=== PATIENT | male | born 1975 | race Two or more races ===

== ENCOUNTER 2025-02-16 06:34 | Emergency (ER) | payer OTHER, SELFPAY ==
[2025-02-16 06:36] VITALS: BP 144/92; PULSE 95; RESP 20; TEMP 37.3; O2SAT 95
[2025-02-16 06:37] VITALS: BMI 30.7
--- NOTE | 2025-02-16 06:58 | XR_ITS ---
Examination: CT cervical spine without contrast 2-D sagittal reconstructions 2-D coronal reconstructions 3-D reconstructions. Exam date and time:February 16, 2025, 0717 hours INDICATIONS: Patient fell off a ladder today with injury to the neck, neck pain CTDI:vol (mGy) 11.1 DLP: (mGycm) 263 Technique: Multiple 2 mm axial sections of the cervical spine have been obtained. The coronal and sagittal reconstructions have been obtained. 3-D reconstructions have been obtained. Low dose protocols were performed. One or more of the following dose reduction techniques were used; automated exposure control, adjustment of the mA and/or KV according to patient size, use of iterative reconstruction technique. Findings: Axial sections demonstrate intact base of the skull. C1 exhibit satisfactory relationship to the odontoid. No acute cervical vertebral body fracture seen. Alignment posterior spinous processes satisfactory. Impression: No acute cervical fracture.
--- NOTE | 2025-02-16 06:58 | XR_ITS ---
Examination: CT brain head without contrast. 2-D sagittal coronal reconstructions Date and time of exam:February 16, 2025, 0717 hours INDICATIONS: Patient fell off a ladder today with injury to the head, head pain CTDI: vol (mGy):55.9 DLP: (mGycm):1074 Technique: Multiple CT axial sections of the brain have been obtained, 5 mm slice thickness. Contrast has not been administered. 2-D sagittal, coronal reconstructions have been obtained Low dose protocols were performed. One or more of the following dose reduction techniques were used; automated exposure control, adjustment of the mA and/or KV according to patient size, use of iterative reconstruction technique. Findings: No significant ventricular enlargement. Intra-axial or extra-axial hemorrhage density is not seen. No mass effect or midline shift Basal cisterns are not remarkable. Fourth ventricle is midline. Cranial vault intact. Impression: Negative for acute hemorrhage, mass effect or midline shift
--- NOTE | 2025-02-16 06:58 | XR_ITS ---
EXAMINATION: Ankle, right 3 views . Technique: Ankle AP, oblique, lateral 3 views Date and time of exam: February 16, 2025 0709 hours INDICATIONS: Patient fell today with into the ankle, ankle pain. FINDINGS: Prominent osteopenia. Comminuted fractures anterior calcaneus No ankle dislocation IMPRESSION: Recommend CT scan ankle without contrast follow-up to assess comminuted calcaneal fractures
--- NOTE | 2025-02-16 07:02 | PD.EDHEAD ---
ED Head Injury RME/HPI General Chief complaint: Ankle/Foot Injury Stated complaint: I THINK I BROKE MY RIGHT ANKLE, FALL FROM LATTER Time Seen by Provider: 02/16/25 06:40 Source: patient Arrival date/time: 02/16/25 06:34 49-year-old male with no known medical history presents to the emergency room with a chief complaint of tenderness and swelling to his right ankle. Patient states he was working on his roof and fell from a ladder that is approximately 5 foot. Patient also states he has been drinking alcohol. Mode of arrival: ambulatory Limitations: no limitations Related Data Previous Rx's ?Medication ?Instructions ?Recorded ibuprofen 800 mg tablet 800 mg PO TID PRN pain #30 tabs 10/31/22 Allergies Allergy/AdvReac Type Severity Reaction Status Date / Time No Known Allergies Allergy Verified 02/16/25 06:37 Review of Systems Review of Systems Systems Reviewed: All systems reviewed, normal except as documented Constitutional Constitutional: Reports system reviewed and no additional complaints, except as documented, Denies fatigue, Denies fever(s), Denies headache(s) and Denies weakness Eyes Eyes: Reports system reviewed and no additional complaints, except as documented, Denies blurry vision and Denies change in vision ENT Ears, Nose, Mouth, and Throat: Reports system reviewed and no additional complaints, except as documented, Denies otalgia, Denies headache(s), Denies nasal congestion, Denies throat swelling and Denies vertigo Cardiovascular Cardiovascular: Reports system reviewed and no additional complaints, except as documented, Denies chest pain, Denies dyspnea and Denies dyspnea on exertion Respiratory Respiratory: Reports system reviewed and no additional complaints, except as documented, Denies chest congestion, Denies cough, Denies dyspnea, Denies dyspnea on exertion and Denies wheezing Gastrointestinal Gastrointestinal: Reports system reviewed and no additional complaints, except as documented, Denies abdominal pain, Denies cramping, Denies nausea and Denies vomiting Genitourinary Genitourinary: Reports system reviewed and no additional complaints, except as documented, Denies dysuria and Denies hematuria Musculoskeletal Musculoskeletal: Reports system reviewed and no additional complaints, except as documented, Reports abnormal gait, Reports arthralgias, Denies back pain, Reports joint swelling and Reports limited range of motion Integumentary/Breasts Skin/Breast: Reports system reviewed and no additional complaints, except as documented and Denies wounds Neurologic Neurologic: Reports system reviewed and no additional complaints, except as documented, Reports abnormal gait, Denies confusion, Denies headache(s), Denies lack of coordination, Denies vertigo and Denies weakness Psychiatric Psychiatric: Reports system reviewed and no additional complaints, except as documented, Denies anxiety, Denies confusion, Denies depression, Denies paranoia, Denies suicidal ideation and Denies tactile hallucinations Endocrine Endocrine: Reports system reviewed and no additional complaints, except as documented and Denies fatigue Hematologic/Lymphatic Hematologic/Lymphatic: Reports system reviewed and no additional complaints, except as documented and Denies lymphadenopathy Allergic/Immunologic Allergic/Immunologic: Reports system reviewed and no additional complaints, except as documented, Denies throat swelling, Denies urticaria and Denies wheezing ED Exam General Limitations: Present no limitations General appearance: Present alert and in no apparent distress Head Head exam: Present atraumatic Eye Eye exam: Present normal appearance, PERRL and EOMI ENT ENT exam: Present normal exam, normal oropharynx and mucous membranes moist Neck Neck exam: Present normal inspection, full ROM and trachea midline Chest Chest inspection: Present normal inspection and symmetric chest wall rise Respiratory Respiratory exam: Present normal lung sounds bilaterally Cardiovascular Cardiovascular exam: Present regular rate, normal rhythm and normal heart sounds Abdominal Exam Abdominal exam: Present soft and normal bowel sounds Extremities Exam Extremities exam: Present normal inspection and full ROM Expanded Lower Extremity Exam Hip/Pelvis exam: Present normal inspection Upper leg exam: Present normal inspection Knee exam: Present normal inspection Lower leg exam: Present normal inspection Ankle exam: Present tenderness, swelling and tenderness over talofibular lig Foot/toe exam: Present normal inspection Gait: observed and limited by pain Back Exam Back exam: Present normal inspection and full ROM Neurological Exam Neurological exam: Present alert, oriented X3 and CN II-XII intact Psychiatric Psychiatric exam: Present normal affect and normal mood Skin Skin exam: Present warm, dry, intact and normal color Course Quality Measures none Orders Category Date Time Status Crutches .NOW Care 02/16/25 09:45 Active Splint / Immobilizer STAT Care 02/16/25 09:[address] cervical spine wo con Stat Exams 02/16/25 06:[address] head/brain wo con Stat Exams 02/16/25 06:58 Completed XR ankle comp RT min 3V Stat Exams 02/16/25 06:58 Completed Vital Signs Vital signs: Vital Signs Temperature 99.2 F 02/16/25 06:36 Pulse Rate 95 02/16/25 06:36 Respiratory Rate 20 02/16/25 06:36 Blood Pressure 144/92 H 02/16/25 06:36 Pulse Oximetry (%) 95 02/16/25 06:36 Oxygen Delivery Method Room Air 02/16/25 06:36 Head Injury MDM Narrative MDM Narrative:: 49-year-old male with no known medical history presents to the emergency room with a chief complaint of tenderness and swelling to his right ankle. Patient states he was working on his roof and fell from a ladder that is approximately 5 foot. Patient also states he has been drinking alcohol. Patient is hemodynamically stable and in no apparent distress. He is a GCS of 15 he is alert and oriented x 3 he is able to tell me where he is at what happened and how he fell. Patient denies any pain to his head to his neck to his chest to his abdomen or any other extremity. Patient states his only pain is in his right ankle. Patient does state he that he was drinking some alcohol prior to working on his roof. A CT of his head and neck was completed and was negative for any acute findings. An x-ray of his ankle was completed and does show a comminuted fracture of the anterior calcaneus. A posterior leg splint was placed and the patient was discharged with crutches. Patient was educated to follow-up with his primary care provider as he will need a referral for further management of his fracture Patient was discharged and educated to follow-up with primary care provider in the next 24 to 48 hours and return to the emergency room for any evidence of worsening signs or symptoms Patient data External records reviewed:: [facility] previous records Clinical information provided by:: patient Social determinants that could affect healthcare access:: none Patient has the following chronic illnesses:: No chronic illness How is presenting disease/condition affected by chronic disease/condition?: no chronic disease Evaluation data The following diagnostics were reviewed and interpreted by me:: lab results and radiology exam(s) Lab and/or radiology exams considered but not ordered:: Labs and radiology exams considered and ordered Interpretation Summary: Head CT-Findings: No significant ventricular enlargement. Intra-axial or extra-axial hemorrhage density is not seen. No mass effect or midline shift Basal cisterns are not remarkable. Fourth ventricle is midline. Cranial vault intact. Impression: Negative for acute hemorrhage, mass effect or midline shift Cervical neck CT-Findings: Axial sections demonstrate intact base of the skull. C1 exhibit satisfactory relationship to the odontoid. No acute cervical vertebral body fracture seen. Alignment posterior spinous processes satisfactory. Impression: No acute cervical fracture. X-ray ankle-FINDINGS: Prominent osteopenia. Comminuted fractures anterior calcaneus No ankle dislocation IMPRESSION: Recommend CT scan ankle without contrast follow-up to assess comminuted calcaneal fractures Medications / Prescriptions Medications or Prescriptions considered but not ordered:: No medication given Medication administrations:: No medication given Consultations Consultation(s) initiated? (list below): No Diagnosis Differential diagnosis head injury: closed head injury and other (Ankle fracture/ankle sprain) Most likely diagnosis given after review of the tests above:: Ankle fracture Admission Indicated Admission indicated?: not indicated Admission Request Was there a request for admission?: No Disposition Plan Disposition Plan: Discharge Discharge Attestation Discharge Attestation: The patient and all family members were given an opportunity to ask questions and understood the discharge instructions. Discharge instructions specifically effects, indications for sooner follow up or return to the emergency department, and the expected course of current diagnosis. Patient condition: Stable Discharge Plan Plan Patient Disposition: HOME (Self Care) Discharge Disposition comment: Stable Prescriptions/Referrals Prescriptions/Med Rec: No Action ibuprofen 800 mg tablet 800 mg PO TID PRN (Reason: pain) Qty: 30 0RF Referrals: Eunice Reynolds PA-C [Primary Care Provider] - In 1 week Problem List Clinical Impression: Ankle fracture Patient/Caregiver Discharge Instructions Education Materials: ED Fracture, Lower Extremity Additional Instructions: Please follow-up with your primary care provider in the next 24 to 48 hours You have a fracture to your ankle. Your primary care provider will send you a referral to an insurance follow up specialist for further management of this fracture Please keep your splint in place since you are seen and cleared by your primary care provider For any evidence of worsening signs or symptoms return to the emergency room immediately Print Language: Lao Stand Alone Forms: Angle Award Info., Work/School Release, Patient Portal Info Letter SHELL/DANA Supervising Physician FRANCISCO Supervising Physician: Dr. Burciaga
== END 2025-02-16 10:45 | disposition home or self-care (01) ==
PROVIDERS: Emergency Provider Family Medicine; PCP Physician Assistant
DX: S92.001A Unspecified fracture of right calcaneus, initial encounter for closed fracture (principal); W11.XXXA Fall on and from ladder, initial encounter; S19.9XXA Unspecified injury of neck, initial encounter; S09.90XA Unspecified injury of head, initial encounter
CPT/HCPCS: 29515; 70450; 72125; 73610; 99284

== ENCOUNTER → 2025-02-21 | Outpatient (CLI) | payer OTHER, SELFPAY ==
[2025-02-21 14:00] LABS: Collection Type, Urine Clean Catch; RBC,Urine 0 /hpf (0-3); Squamous Epithelial Cell,Urine 0 /hpf (0-5)
[2025-02-21 14:53] LABS: Glucose Estimated Average 108 mg/dL (80-131); Hemoglobin A1C 5.4 % Hgb (4.8-6.0); Prostate Specific Antigen 1.24 ng/mL (0-4.00)
[2025-02-21 14:57] LABS: Microalbumin, Random Urine 89 mg/L (0-300)
[2025-02-21 14:58] LABS: Alanine Aminotransferase 62 U/L (10-49); Albumin, Serum 4.7 gm/dL (3.5-5.0); Albumin/Globulin Ratio 1.6 (1.2-2.2); Alkaline Phosphatase 92 U/L (46-116); Anion Gap 16 (7-16); Aspartate Amino Transferase 37 U/L (0-34); BUN/Creatinine Ratio 10 Ratio (12-20); Bilirubin,Direct 0.3 mg/dL (0.0-0.3); Bilirubin,Total 1.2 mg/dL (0.3-1.2); Blood Urea Nitrogen 16 mg/dL (9-23); Calcium 9.6 mg/dL (8.3-10.6); Calcium (Corrected) 9.6 mg/dL (8.5-10.1); Carbon Dioxide 21.4 mMol/L (20.0-31.0); Cardiac Risk Estimate 5.5 RATIO (4.0-6.7); Chloride 104 mMol/L (98-107); Cholesterol 233 mg/dL (132-200); Creatinine (Component) 1.6 mg/dL (0.6-1.3); Free T4 (Free Thyroxine) 1.47 ng/dL (0.89-1.76); Globulin 2.9 gm/dL (2.3-3.5); Glucose 113 mg/dL (74-106); HDL Cholesterol 42 mg/dL (40-60); LDL Cholesterol,Calculated 157 mg/dL (0-130); Osmolality,Calculated 283 (275-295); Potassium 4.5 mMol/L (3.4-5.1); Sodium 141 mMol/L (136-145); Thyroid Stimulating Hormone 6.48 uIU/mL (0.55-4.78); Total Protein 7.6 gm/dL (5.7-8.2); Triglycerides 171 mg/dL (30-150); eGFR 52 See Note
[2025-02-21 14:58] LABS: Bacteria,Urine Rare; Bilirubin,Urine Negative (Negative); Blood,Urine Negative (Negative); Clarity,Urine Turbid (Clear/Hazy); Color,Urine Yellow (Lt Yel-Yel); Culture Indicated,Urine Not Indicated; Glucose, Urine Negative (Negative); Hyaline Casts,Urine 1 /hpf (0-1); Ketones,Urine Trace (Negative); Leukocyte Esterase,Urine Negative (Negative); Nitrite,Urine Negative (Negative); PH,Urine 6.0 (5.0-7.0); Protein,Urine 1+ (Neg - Trace); Specific Gravity,Urine 1.032 (1.001-1.035); Urobilinogen,Urine 3.0 mg/dL (0.0-1.0); WBC,Urine 3 /hpf (0-5)
[2025-02-21 14:59] LABS: Vitamin B12 448 pg/mL (211-911); Vitamin D 25 Hydroxy Total 16.1 ng/mL (7.3-40.2)
[2025-02-21 15:07] LABS: Creatinine MALB Rnd Ur 457 mg/dL (30-125); Microalbumin Creat Ratio 19 mg/gCrea (<30)
== END | disposition home or self-care (01) ==
LOC: COPL 12:53
PROVIDERS: PCP Physician Assistant
DX: Z00.00 Encounter for general adult medical examination without abnormal findings (principal)
CPT/HCPCS: 36415; 80053; 80061; 80076; 81001; 82043; 82248; 82306; 82570; 82607; 83036; 84153; 84439; 84443

== ENCOUNTER → 2025-05-18 | Outpatient (CLI) | payer OTHER, SELFPAY ==
--- NOTE | 2025-05-18 16:56 | XR_ITS ---
EXAMINATION: Ankle, right 3 views . Technique: Ankle AP, oblique, lateral 3 views Date and time of exam: The resection, 2024, 171 hrs. Indications: Right ankle fracture 3 months ago Findings: Significant osteopenia Healed fractures anterior calcaneus No new fractures Impression: Healed fractures anterior calcaneus with stable alignment
== END | disposition home or self-care (01) ==
LOC: CDIM 16:52
PROVIDERS: Referring Provider Podiatrist; Visit Provider Podiatrist
DX: Z87.81 Personal history of (healed) traumatic fracture (principal); S82.891S Other fracture of right lower leg, sequela; W13.2XXS Fall from, out of or through roof, sequela
CPT/HCPCS: 73610

== ENCOUNTER → 2025-06-05 | Outpatient (CLI) | payer OTHER, SELFPAY ==
[2025-06-05 09:46] LABS: Cardiac Risk Estimate 6.1 RATIO (4.0-6.7); Cholesterol 242 mg/dL (132-200); HDL Cholesterol 40 mg/dL (40-60); Triglycerides 412 mg/dL (30-150)
[2025-06-05 10:12] LABS: Glucose Estimated Average 114 mg/dL (80-131); Hemoglobin A1C 5.6 % Hgb (4.8-6.0)
== END | disposition home or self-care (01) ==
LOC: COPL 08:27
DX: E78.2 Mixed hyperlipidemia (principal); E55.9 Vitamin D deficiency, unspecified
CPT/HCPCS: 36415; 80061; 83036